=== PATIENT | male | born 1980 | race Hispanic/Latino ===

== ENCOUNTER 2023-03-13 10:26 | Emergency (ER) | payer OTHER ==
[~2023-03-13] VITALS: Ht 175.3 cm; Wt 98.0 kg
[2023-03-13 12:01] VITALS: BP 145/80
== END 2023-03-13 12:02 | disposition home or self-care (01) ==
LOC: ED 10:26
DX: M23.91 Unspecified internal derangement of right knee (principal)
CPT/HCPCS: 73560; 99283-25